=== PATIENT | male | born 1945 | race Caucasian/White ===

== ENCOUNTER 2019-04-27 22:28 | Inpatient (IN) | payer MEDICARE, OTHER ==
[~2019-04-27] VITALS: Ht 190.5 cm; Wt 135.2 kg
[~2019-04-27 22:28] MED LIST changes: -ASPI81TA94 PO; -EMPA10TA PO; -GABA-549 PO; -GABA-551 PO; -LIRA0.6P3 SQ; -MELO-205 PO; -METF-452 PO; -MULT-1335 PO; -PREG150C33 PO; -SITA100T PO; -TRIAMCINOLONE
--- NOTE | 2019-04-27 22:30 | ER Report ---
History and Physical Time Seen By MD: 22:29 HPI/ROS CHIEF COMPLAINT: Fever and chills HISTORY OF PRESENT ILLNESS: 73-year-old male type II diabetic, had a rigor at home. He took his blood glucose at 80. (Fingerstick on arrival here 127). He t hought he might be having hypoglycemic attacks. He presents to the ER. 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 Patient was on clindamycin for several weeks without improvement. Today he was switched over to Levaquin. Is a large ulcer on the anterior old medial aspect of the partial ampule patient of the toe. The 2nd toe is entirely erythematous consistent with cellulitis. There is a bloody serosanguineous drainage from the 2nd toe. On arrival here. Patient's documented have a fever 99.8. Patient had an x-ray performed earlier of the right foot which shows no bony erosion of the right 2nd toe, see radiology reading. REVIEW OF SYSTEMS: Respiratory: No cough, no dyspnea. Cardiovascular: No chest pain, no palpitations. Gastrointestinal: No vomiting, no abdominal pain. Musculoskeletal: No back pain. Allergies: Coded Allergies: Streptokinase (Verified Allergy, Intermediate, FEVER CHILLS, 01/16/11) Sulfa(Sulfonamide Antibiotics) (Verified Allergy, Unknown, 03/23/11) Home Meds Reported Medications Gabapentin (GABAPENTIN) 400 Mg Capsule, 3 TAB PO BID, CAPSULE 3 tabs at 1800, and 2100 04/28/19 Multivitamin With Minerals (MULTIPLE VITAMIN) 1 Each Tablet, 1 EACH PO, TAB 04/28/19 Aspirin (ASPIRIN) 81 Mg Tab.chew, 81 MG PO QDAY, TAB.CHEW 04/28/19 Liraglutide (VICTOZA 2-ANAND) 0.6 Mg/0.1 Ml Pen.injctr, 1.2 MG SQ QDAY 04/28/19 [Trimicinolone Cream] No Conflict Check 04/28/19 Meloxicam (MELOXICAM) 7.5 Mg Tablet, 7.5 MG PO QHS 04/28/19 Pregabalin (LYRICA) 150 Mg Capsule, 150 MG PO QHS, CAPSULE 04/28/19 Empagliflozin (Jardiance) 10 Mg Tablet, 10 MG PO QDAY 04/28/19 Sitagliptin Phosphate (JANUVIA) 100 Mg Tablet, 100 MG PO QDAY 04/28/19 Metformin Hcl (METFORMIN HCL) 1,000 Mg Tablet, 1 TAB PO BID, TAB 04/28/19 Clopidogrel Bisulfate (Plavix) 75 Mg Tab, 75 MG PO QDAY, 0 Refills 03/19/11 Simvastatin (Zocor) 40 Mg Tablet, 40 MG PO QHS, 0 Refills 03/19/11 Metoprolol Tartrate (Lopressor) 50 Mg Tablet, 50 MG PO BID, 0 Refills 03/19/11 Lisinopril (Lisinopril) 10 Mg Tablet, 10 MG PO, 0 Refills 03/19/11 Discontinued Reported Medications Gabapentin (GABAPENTIN) 300 Mg Capsule, 600 MG PO TID, CAPSULE 04/28/19 [Plavix Held] No Conflict Check, 0 Refills 03/19/11 Glimepiride (Amaryl) 2 Mg Tab, 2 MG PO QDAY, 0 Refills 03/19/11 Fenofibric Acid (Trilipix) 135 Mg Capsule.dr, 135 MG PO, 0 Refills 03/19/11 Sitagliptin Phos/Metformin Hcl (Janumet 50-1,000 Mg Tablet) 1 Udtab Tablet, 1 UDTAB PO BID, 0 Refills 03/19/11 Me-Cobalam/Lm-Folate/Pyridoxal (Metanx Tablet) 1 Tab Tablet, 1 TAB PO, 0 Refills 03/19/11 Past Medical/Surgical History Hypoxia. Patient wears 4 L of O2 at night at home. Type II diabetes, insulin required Reviewed Nurses Notes: Yes Old Medical Records Reviewed: Yes Constitutional Vital Sign - Last 24 Hours 04/27/19 04/27/19 22:33 22:57 Temp 99.8 Pulse 109 Resp 19 B/P (MAP) 165/82 Pulse Ox 95 O2 Delivery Room Air O2 Flow Rate 4.0 Physical Exam General Appearance: The patient is alert, has no immediate need for airway protection and no current signs of toxicity. Vital signs stable. Temp 99.8 Eyes: Pupils equal and round no injection. Respiratory: Chest is non tender, lungs are clear to auscultation. Cardiac: regular rate and rhythm Gastrointestinal: Abdomen is soft and non tender, no masses, bowel sounds normal. Musculoskeletal: Neck: Neck is supple and non tender. Extremities have full range of motion and are non tender. Examination of the right foot reveals an erythematous 2nd toe with a large 1 cm ulcer on the anterior medial aspect, there is gross erythema up to the mid calf region, primarily on the posterior aspect of the calf. It is warm to the touch. Skin: No rashes or lesions. DIFFERENTIAL DIAGNOSIS: After history and physical exam differential diagnosis was considered for cellulitis, osteomyelitis, Medical Decision Making Data Points Result Diagram: 04/29/19 0514 04/29/19 0514 Laboratory Hematology Test 04/27/19 22:57 04/27/19 23:44 Erythrocyte Sedimentation Rate 10 mm/HOUR (0-20) Lactate 1.6 mmol/L (0.7-2.1) C-Reactive Protein 1.2 mg/dl (<1.0) Urine Color Yellow Urine Clarity Clear Urine pH 5.0 pH (4.8-9.5) Urine Specific [place] 1.023 Urine Protein Negative mg/dL (NEGATIVE) Urine Glucose (UA) 500 mg/dL (NEGATIVE) Urine Ketones Trace mg/dL (NEGATIVE) Urine Blood Negative (NEGATIVE) Urine Nitrite Negative (NEGATIVE) Urine Bilirubin Negative (NEGATIVE) Urine Urobilinogen Negative mg/dL (0.2-1.9) Urine Leukocyte Esterase Negative (NEGATIVE) Urine RBC <1 /HPF (0-2/HPF) Urine WBC 3 /HPF (0-5/HPF) Urine Squamous Epithelial Cells None /LPF (</=FEW) Urine Bacteria Negative /HPF (NONE-FEW) Urine Mucus None /HPF (NONE-FEW) Chemistry Test 04/27/19 22:57 04/27/19 23:44 Erythrocyte Sedimentation Rate 10 mm/HOUR (0-20) Lactate 1.6 mmol/L (0.7-2.1) C-Reactive Protein 1.2 mg/dl (<1.0) Urine Color Yellow Urine Clarity Clear Urine pH 5.0 pH (4.8-9.5) Urine Specific [place] 1.023 Urine Protein Negative mg/dL (NEGATIVE) Urine Glucose (UA) 500 mg/dL (NEGATIVE) Urine Ketones Trace mg/dL (NEGATIVE) Urine Blood Negative (NEGATIVE) Urine Nitrite Negative (NEGATIVE) Urine Bilirubin Negative (NEGATIVE) Urine Urobilinogen Negative mg/dL (0.2-1.9) Urine Leukocyte Esterase Negative (NEGATIVE) Urine RBC <1 /HPF (0-2/HPF) Urine WBC 3 /HPF (0-5/HPF) Urine Squamous Epithelial Cells None /LPF (</=FEW) Urine Bacteria Negative /HPF (NONE-FEW) Urine Mucus None /HPF (NONE-FEW) Urinalysis Test 04/27/19 23:44 Urine Color Yellow Urine Clarity Clear Urine pH 5.0 pH (4.8-9.5) Urine Specific [place] 1.023 Urine Protein Negative mg/dL (NEGATIVE) Urine Glucose (UA) 500 mg/dL (NEGATIVE) Urine Ketones Trace mg/dL (NEGATIVE) Urine Blood Negative (NEGATIVE) Urine Nitrite Negative (NEGATIVE) Urine Bilirubin Negative (NEGATIVE) Urine Urobilinogen Negative mg/dL (0.2-1.9) Urine Leukocyte Esterase Negative (NEGATIVE) Urine RBC <1 /HPF (0-2/HPF) Urine WBC 3 /HPF (0-5/HPF) Urine Squamous Epithelial Cells None /LPF (</=FEW) Urine Bacteria Negative /HPF (NONE-FEW) Urine Mucus None /HPF (NONE-FEW) Microbiology Microbiology Date/Time Source Procedure Growth Status 04/27/19 23:16 Blood Peripheral Draw Blood Culture - Preliminary NO GROWTH AFTER 1 DAY, REINCUBATED Resulted 04/27/19 22:57 Blood Peripheral Draw Blood Culture - Preliminary NO GROWTH AFTER 1 DAY, REINCUBATED Resulted EKG/Imaging Imaging FOOT 3 VIEWS RIGHT History: Right foot pain. Right second toe swelling. History of amputation. Comparison study: None. Findings: There is no acute fracture involving the right foot. There has been amputation of the second digit at the PIP joint. There has been amputation of the third digit at the DIP joint. There is widening of the joint space at the fourth PIP joint is of uncertain etiology or significance. Similar findings are noted at the fifth PIP joint. There is no finding of bony erosion in a digits. IMPRESSION: 1. Postoperative changes involving the second third digit as described above. 2. No definitive site of bony erosion. No fracture. X-ray: Single view chest x-ray was obtained. I viewed the images myself on the PACS system. My interpretation of the images is: No infiltrate, no effusion, normal mediastinum. There is minimal haziness in the left lower lobe of unclear significance, Comparison to previous chest x-ray dated , no significant change. [The radiologist interpretation had no clinically significant variation from this interpretation]. Results: Ultrasound of the right lower extremity ultrasound for DVT was obtained. The re sults of the study are VENOUS DOPP LOW RIGHT EXTREMIT HISTORY: R calf swelling redness r/o DVT COMPARISON: None. FINDINGS: Grayscale, duplex and color Doppler interrogation of the right lower extremity deep veins from common femoral vein to proximal calf was completed. The greater saphenous vein in the proximal thigh was evaluated using similar technique. Common femoral vein - Negative. Femoral vein - Negative. Deep femoral vein - Negative. Popliteal vein - Negative. Visualized deep calf veins - Negative. Popliteal fossa: Negative. Greater saphenous vein in the proximal thigh: Negative. IMPRESSION: No evidence for DVT. The study was read by the radiologist. I viewed the images myself on the PACS system. ED Course/Re-evaluation Clinical Indication for ER IV: Hydration, IV Access ED Course Patient was admitted to an examination room. H&P was done. The differential diagnoses was considered. Patient with a rigor and then a fever. I suspect he was bacteremic since his lactate returned normal. He's failing outpatient therapy for cellulitis of his 2nd toe which is now spreading to his right lower extremity. His CBC count was elevated at 15,000 with a left shift, 88 segs. Patient was on clindamycin for several weeks. He was reevaluated again today. A foot x-ray shows no evidence of osteomyelitis. He was switched to Levaquin and took a single dose. This evening he began to feel bad and thought he was h aving a hypoglycemic attack. His blood sugar was checked at 80 at home. On arrival here was 127. Patient had blood cultures performed. Chest x-ray and urinalysis were also performed. Patient is hypoxic on arrival, but he wears 4 L at home. He complains of no chest pain or shortness of breath. He said no productive cough. Patient appears to be failing outpatient oral antibiotics. 04/28/2019 12:54:50 am case was discussed with Dr. Marcial Orr hospitalist on- call, who accepts the patient for treatment of cellulitis of the right lower extremity Decision to Disposition Date: Apr 27, 2019 Decision to Disposition Time: 23:46 Depart Departure Latest Vital Signs Vital Signs Date Time Temp Pulse Resp B/P (MAP) Pulse Ox O2 Delivery O2 Flow Rate FiO2 04/27/19 22:57 4.0 04/27/19 22:33 99.8 109 19 165/82 95 Room Air Impression: Primary Impression: Cellulitis of right foot Additional Impression: Type II diabetes mellitus Condition: Improved Disposition: Admitted from ER Referrals: KOMAL FLETCHER MD (PCP) Problem Qualifiers Additional Impression: Type II diabetes mellitus Diabetes mellitus jail insulin use: unspecified intermediate project manager insulin use status Diabetes mellitus complication status: with circulatory complication Diabetes mellitus complication detail: with peripheral angiopathy with gangrene Qualified Codes: E11.52 - Type 2 diabetes mellitus with diabetic peripheral angiopathy with gangrene ENA DAVIDSON DO Apr 27, 2019 22:30
[2019-04-27] MEDS ORDERED: NS(*) 0.9% 1000 ML BAG 1,000 ML IV ONE (22:40)
[2019-04-27 23:21] LABS: PLATELET COUNT, AUTOMATED 145 K/uL (150-450)
[2019-04-27] MEDS ORDERED: VANCOMYCIN(*) 1 GM VIAL 2 GM in NS(*) 0.9% 500 ML BAG 500 ML IVPB ONE (23:50)
--- NOTE | 2019-04-28 00:23 | RADIOLOGY IMAGING REPORT ---
FACILITY: [facility] PATIENT NAME: Sebastien Leonard : 1945 MR: [id number] V: [id number] EXAM DATE: ORDERING PHYSICIAN: ENA DAVIDSON TECHNOLOGIST: Location: [facility] [place] Patient: Sebastien Leonard : 1945 Visit/Account:[id number] Date of Sevice: 04/27/2019 VENOUS DOPP LOW RIGHT EXTREMIT HISTORY: R calf swelling redness r/o DVT COMPARISON: None. FINDINGS: Grayscale, duplex and color Doppler interrogation of the right lower extremity deep veins from common femoral vein to proximal calf was completed. The greater saphenous vein in the proximal thigh was ev aluated using similar technique. Common femoral vein - Negative. Femoral vein - Negative. Deep femoral vein - Negative. Popliteal vein - Negative. Visualized deep calf veins - Negative. Popliteal fossa: Negative. Greater saphenous vein in the proximal thigh: Negative. IMPRESSION: No evidence for DVT. Report Dictated By: Humza Rider MD at 04/28/2019 12:18 AM Report E-Signed By: Humza Rider MD at 04/28/2019 12:18 AM WSN:[id number]
[2019-04-28] MEDS ORDERED: MELO-205 PO (00:43)
[2019-04-28] MEDS ORDERED: LIRA0.6P3 SQ (00:43)
[2019-04-28] MEDS ORDERED: PREG150C33 PO (00:43)
[2019-04-28] MEDS ORDERED: TRIAMCINOLONE (00:43)
[2019-04-28] MEDS ORDERED: MULT-1335 PO (00:43)
[2019-04-28] MEDS ORDERED: GABA-549 PO (00:43)
[2019-04-28] MEDS ORDERED: METF-452 PO (00:43)
[2019-04-28] MEDS ORDERED: EMPA10TA PO (00:43)
[2019-04-28] MEDS ORDERED: ASPI81TA94 PO (00:43)
[2019-04-28] MEDS ORDERED: SITA100T PO (00:43)
--- NOTE | 2019-04-28 00:53 | RADIOLOGY IMAGING REPORT ---
FAC[place] [facility] [place] PATIENT NAME: Sebastien Leonard : 1945 MR: [id number] V: [id number] EXAM DATE: ORDERING PHYSICIAN: ENA DAVIDSON TECHNOLOGIST: [facility] Patient: Sebastien Leonard : 1945 Visit/Account:[id number] Date of Sevice: 04/27/2019 PORTABLE CHEST: Indication: Fever and chills. Technique: A single frontal film was obtained. Comparison: 03/24/2011 Skeletal and soft tissue structures: Sternal sutures appear intact. No acute skeletal deformity is id entified. Heart and mediastinum: The heart appears mildly enlarged. The mediastinal contours are stable. Lung castillo: Hypoexpanded. No acute parenchymal process is clearly identified. There is no vascular c ongestion. Pleural spaces: Unremarkable. Impression: No acute process or significant change. Report Dictated By: Jarred Gonzalez MD at 04/28/2019 12:46 AM Report E-Signed By: Jarred Gonzalez MD at 04/28/2019 12:48 AM WSN:[id number]
[2019-04-28 02:02] VITALS: BP 146/77
[2019-04-28 02:05] VITALS: BP 146/77
[2019-04-28] MEDS ORDERED: GABA-551 PO (02:26)
[2019-04-28] MEDS ORDERED: NS(*) 0.9% 500 ML BAG 500 ML ONE (02:38)
[2019-04-28] MEDS ORDERED: ACETAMINOPHEN 325 MG TAB PO PRN (02:55)
--- NOTE | 2019-04-28 03:22 | History & Physical ---
History of Present Illness Chief Complaint Right leg and foot pain History of Present Illness 73yo male with PMHx significant for type 2 DM, CAD s/p stenting x4, DVT, previous osteomyelitis right 2nd toe s/p partial amputation. He reports onset of redness, pain, drainage in right 2nd toe approximately 10 days ago. He was seen in the local urgent care and placed on clindamycin. His toe did not show much improvement over the following week and he began to develop some redness and pain in his anterior tibial/calf areas. He was changed to oral Levaquin yesterday. Following the first dose of Levaquin he noticed onset of chills/rigors. He also noted his blood glucose was lower than usual. [facility]. He was found to be febrile (100.2F) and have an elevated WBC count. Foot x-ray did not show any erosive bone changes. US venogram was negative for DVT. He was recommended for admission. History Problems: (1) CAD (coronary artery disease) Status: Chronic (2) History of coronary artery stent placement Status: Chronic (3) Osteomyelitis of toe Status: Resolved (4) History of partial amputation of toe Status: Resolved (5) Type II diabetes mellitus Status: Chronic (6) Diabetic neuropathy Status: Chronic (7) DVT (deep venous thrombosis) Status: Resolved Home Meds Reported Medications Gabapentin (GABAPENTIN) 400 Mg Capsule, 3 TAB PO BID, CAPSULE 3 tabs at 1800, and 2100 04/28/19 Multivitamin With Minerals (MULTIPLE VITAMIN) 1 Each Tablet, 1 EACH PO, TAB 04/28/19 Aspirin (ASPIRIN) 81 Mg Tab.chew, 81 MG PO QDAY, TAB.CHEW 04/28/19 Liraglutide (VICTOZA 2-ANAND) 0.6 Mg/0.1 Ml Pen.injctr, 1.2 MG SQ QDAY 04/28/19 [Trimicinolone Cream] No Conflict Check 04/28/19 Meloxicam (MELOXICAM) 7.5 Mg Tablet, 7.5 MG PO QHS 04/28/19 Pregabalin (LYRICA) 150 Mg Capsule, 150 MG PO QHS, CAPSULE 04/28/19 Empagliflozin (Jardiance) 10 Mg Tablet, 10 MG PO QDAY 04/28/19 Sitagliptin Phosphate (JANUVIA) 100 Mg Tablet, 100 MG PO QDAY 04/28/19 Metformin Hcl (METFORMIN HCL) 1,000 Mg Tablet, 1 TAB PO BID, TAB 04/28/19 Clopidogrel Bisulfate (Plavix) 75 Mg Tab, 75 MG PO QDAY, 0 Refills 03/19/11 Simvastatin (Zocor) 40 Mg Tablet, 40 MG PO QHS, 0 Refills 03/19/11 Metoprolol Tartrate (Lopressor) 50 Mg Tablet, 50 MG PO BID, 0 Refills 03/19/11 Lisinopril (Lisinopril) 10 Mg Tablet, 10 MG PO, 0 Refills 03/19/11 Discontinued Reported Medications Gabapentin (GABAPENTIN) 300 Mg Capsule, 600 MG PO TID, CAPSULE 04/28/19 [Plavix Held] No Conflict Check, 0 Refills 03/19/11 Glimepiride (Amaryl) 2 Mg Tab, 2 MG PO QDAY, 0 Refills 03/19/11 Fenofibric Acid (Trilipix) 135 Mg Capsule.dr, 135 MG PO, 0 Refills 03/19/11 Sitagliptin Phos/Metformin Hcl (Janumet 50-1,000 Mg Tablet) 1 Udtab Tablet, 1 UDTAB PO BID, 0 Refills 03/19/11 Me-Cobalam/Lm-Folate/Pyridoxal (Metanx Tablet) 1 Tab Tablet, 1 TAB PO, 0 Refills 03/19/11 Allergies: Coded Allergies: Streptokinase (Verified Allergy, Intermediate, FEVER CHILLS, 01/16/11) Sulfa(Sulfonamide Antibiotics) (Verified Allergy, Unknown, 03/23/11) Other Social/Family Hx He is . Hx Smoking: No Caffeine Intake: Coffee Caffeine/Cups Per Day: 1-2 Hx Alcohol Use: Yes Alcohol Use: Occassional Hx Substance Use Disorder: No Review of Systems Constitutional: Fever, Chills Cardiovascular: No Chest Pain, No Palpitations Respiratory: No Shortness of Breath Gastrointestinal: No Nausea, No Vomiting, No Diarrhea, No Constipation, No Hematemesis, No Hematochezia, No Melena, No Abdominal Pain Genitourinary: No Dysuria Musculoskeletal: Pain Exam Vital Signs Vital Signs Date Time Temp Pulse Resp B/P (MAP) Pulse Ox O2 Delivery O2 Flow Rate FiO2 04/28/19 02:02 100.2 104 16 146/77 (100) 91 Nasal Cannula 4.0 General Appearance: Alert, Awake Neuro: No Gross deficits Eyes: PERRLA Neck: Other (thick/alexis) Cardiovascular: Regular Rate and Rhythm Respiratory: Clear to Auscultation Chest: No Tenderness GI: Abd Soft and Non-Tender (obese) Extremities: Warm, Perfused, Other (Previous partial amputation of distal aspect second toe right foot with erythema/edema/ulcer on distal aspect. Some bloody drainage.) Integumentary: Other (chronic venous stasis changes right lower extremity/some erythema and mild edema over right anterior tibial area extending posteriorly) Psych: Alert & Oriented X3 Medical Decision Making Data Points Result Diagram: 04/27/19225604/27/192256 Item Value Date Time Albumin 4.6 g/dl 04/27/192256 Total Protein 7.5 g/dl 04/27/192256 C-Reactive Protein 1.2 mg/dl H 04/27/192256 Alkaline Phosphatase 95 U/L 04/27/192256 Alanine Aminotransferase (ALT/SGPT) 36 U/L 04/27/192256 Aspartate Amino Transf (AST/SGOT) 35 U/L 04/27/192256 Total Bilirubin 0.9 mg/dl 04/27/192256 Calcium Level 9.6 mg/dl 04/27/192256 Lactate 1.6 mmol/L 04/27/192256 Urine Color Yellow 04/27/19 2344 Urine Clarity Clear 04/27/192343 Urine pH 5.0 pH 04/27/19 2344 Urine Specific [place] 1.023 04/27/19 2344 Urine Protein Negative mg/dL 04/27/194 Urine Glucose (UA) 500 mg/dL 04/27/19 2344 Urine Ketones Trace mg/dL 04/27/19 2344 Urine Blood Negative 04/27/19 2344 Urine Nitrite Negative 04/27/19 2344 Urine Bilirubin Negative 04/27/19 2344 Urine Urobilinogen Negative mg/dL 04/27/19 2344 Urine Leukocyte Esterase Negative 04/27/19 2344 Urine RBC <1 /HPF 04/27/19 2344 Urine WBC 3 /HPF 04/27/19 2344 Urine Squamous Epithelial Cells None /LPF 04/27/19 2344 Urine Bacteria Negative /HPF 04/27/19 2344 Urine Mucus None /HPF 04/27/19 2344 Assessment and Plan Problems: (1) Cellulitis of right foot Status: Acute Assessment & Plan: It appears he has cellulitis of his right second toe and foot with some extension to distal leg as well. He has been on oral clindamycin and subsequent Levaquin as an outpatient. Will place him on IV vancomycin and cefepime. Will have wound care see. May need to consider MRI to evaluate as well. (2) CAD (coronary artery disease) Status: Chronic Assessment & Plan: He appears stable from this standpoint. Will continue his Plavix, aspirin, simvastatin, and metoprolol. (3) Type II diabetes mellitus Status: Chronic Assessment & Plan: Will place on ADA diet, monitor glucoses, resume his metformin, Jardiance, Januvia, Victoza, and use SSI as needed. Venous Thromboembolism Antithrombotics Is Pt On Any Antithrombotics?: Yes Exam Sepsis Risk: No Definite Risk Problem Qualifiers (1) Type II diabetes mellitus: Diabetes mellitus detention insulin use: unspecified terminal makeup operator insulin use status Diabetes mellitus complication status: with circulatory complication Diabetes mellitus complication detail: with peripheral angiopathy with gangrene Qualified Codes: E11.52 - Type 2 diabetes mellitus with diabetic peripheral angiopathy with gangrene ALPESH HERNANDEZ MD Apr 28, 2019 03:22
[2019-04-28] MEDS ORDERED: CEFEPIME HCL 2 GM VIAL ONE (03:34)
[2019-04-28] MEDS: CEFEPIME HCL 2 GM VIAL IVP SCH ×2 (04:01→16:13)
[2019-04-28 06:21] LABS: PLATELET COUNT, AUTOMATED 120 K/uL (150-450)
[2019-04-28 07:25] VITALS: BP 125/71
[2019-04-28] MEDS: PATIENT'S OWN MED PO SCH (09:00)
[2019-04-28] MEDS: GABAPENTIN 300 MG CAP PO SCH ×4 (09:00→20:47)
[2019-04-28] MEDS: METOPROLOL TART 50 MG TAB PO SCH ×2 (09:31→20:45)
[2019-04-28] MEDS: metFORMIN HCL XR 500 MG TABCR PO SCH ×2 (09:31→20:45)
[2019-04-28] MEDS: ENOXAPARIN 40 MG/0.4ML SYR SC SCH (09:32)
[2019-04-28] MEDS: CLOPIDOGREL BISULFATE 75MG TAB PO SCH (09:32)
[2019-04-28] MEDS: ASPIRIN 81 MG ENTERIC COATED PO SCH (09:32)
[2019-04-28] MEDS: LISINOPRIL 10 MG TAB PO SCH (09:32)
[2019-04-28] MEDS: MULTIVITAMINS TAB PO SCH (09:32)
[2019-04-28] MEDS: LIRAGLUTIDE 18 MG/3 ML SUBQ SCH (09:35)
[2019-04-28 10:17] VITALS: Ht 190.5 cm; Wt 135.2 kg
--- NOTE | 2019-04-28 11:15 | NUR ---
Physical Therapy Impression PT mobility eval complete. Pt is Henry for bed mobility, transfers and ambulation with no AD. Ambulation x250' with good tolerance. Pt asc/desc 8 stairs with step to gait and no LOB. Pt is safe to be I) in his room and was encouraged to ambulate in halls as tolerated. No further PT visits planned. PT wound eval complete. Pt reports with neuropathic ulcer of the medial side of the proximal 2nd toe of the R) foot, distal toe was previously amputated several years ago per pt report. Pt reports that he noticed the wound about 2 weeks ago, but has done minimal to dress the wound. Wound is open to air and covered by sock at time of eval. Calloused area with obvious fluctuance present on the medial side of the R) second toe. PT completed conservative, selective debridement of non viable tissue and slough with tweezers and scissors to the depth of the subcutaneous tissue. Entire area of fluctuance removed to reveal underlying wound, which probes to the depth of the bone at the base of the wound. Purulent drainage expressed. Wound cleansed with sterile saline and then treated with calcium alginate and a bordered gauze dressing. Dr. Pryor notified, pt will be scheduled for an MRI later today. PT to f/u 05/01/19 for dressing change and debridement as needed and pending result of MRI. Physical Therapy Goals 1: bed mobility with Henry 2: transfers with Henry 3: ambulation x150' with Henry 4: up/down 8 stairs with SBA Patient's Goals
[2019-04-28] MEDS ORDERED: VANCOMYCIN(*) 1 GM VIAL 2 GM in NS(*) 0.9% 500 ML BAG 500 ML IVPB SCH (12:00)
[2019-04-28 13:16] VITALS: BP 117/67
[2019-04-28] MEDS: NS(*) 0.9% 1000 ML BAG 1,000 ML IV PRN (18:10)
[2019-04-28 19:05] VITALS: BP 126/69
[2019-04-28] MEDS: SIMVASTATIN 40 MG TAB PO SCH (20:46)
[2019-04-28] MEDS: PREGABALIN 150 MG CAPSULE PO SCH (20:46)
[2019-04-28 23:01] VITALS: BP 130/71
[2019-04-29] MEDS: VANCOMYCIN(*) 1 GM VIAL 1 GM, VANCOMYCIN HCL 0.750 GM VIAL 0.75 GM in NS(*) 0.9% 250 ML... IVPB SCH ×3 (00:21→16:24)
[2019-04-29 02:27] VITALS: BP 127/71
[2019-04-29] MEDS: CEFEPIME HCL 2 GM VIAL IVP SCH ×2 (03:46→16:23)
[2019-04-29 05:45] LABS: PLATELET COUNT, AUTOMATED 117 K/uL (150-450)
[2019-04-29 07:43] VITALS: BP 124/70
[2019-04-29] MEDS: METOPROLOL TART 50 MG TAB PO SCH ×2 (08:24→21:19)
[2019-04-29] MEDS: LISINOPRIL 10 MG TAB PO SCH (08:24)
[2019-04-29] MEDS: CLOPIDOGREL BISULFATE 75MG TAB PO SCH (08:24)
[2019-04-29] MEDS: ENOXAPARIN 40 MG/0.4ML SYR SC SCH (08:24)
[2019-04-29] MEDS: LIRAGLUTIDE 18 MG/3 ML SUBQ SCH (08:29)
[2019-04-29] MEDS: PATIENT'S OWN MED PO SCH (09:00)
--- NOTE | 2019-04-29 09:31 | Antimicrobial Stewardship ---
Antimicrobial Time Out Antimicrobial Stewardship MD Service: Hospitalist Indications: Cellulitis Antimicrobial Used cefepime and vanco Start Date: Apr 27, 2019 Culture Results: No (no growth) Eligible for PO Conversion Eligable for PO Conversion: Yes Reviewed with Provider Reviewed w/ Provider on Rounds: No Comments Comments Currently on broad coverage pending results from microbiology. Hx of DM, osteo a nd partial amputation of affected digit. SCOOTER TY Apr 29, 2019 09:31
--- NOTE | 2019-04-29 09:43 | Pharmacy Note ---
Vancomycin Management Note Vanco Dosing Note Pharmacy Services Pharmacokinetic Dosing Consult, Vancomycin Pharmacy has been consulted for dosing and monitoring of vancomycin for 73 YO male for cellulitis of toe. Pertinent Past Medical History: osteo in same toe, s/p partial amputation, DM Antibiotics prior to admission; Clindamycin and Levaquin PO outpatient (failed) Additional Antimicrobials: Cefepime 2g Q24H Start 04/28/19 Vancomycin Start 04/28/19 Patient Information: Height (cm): 190.5cm Actual Body Weight (ABW): 135 kg Pertinent Lab Tests WHITE BLOOD COUNT 9.1 (down from 15.2) NEUTROPHILS 70.7% (down from 86.7%) BLOOD UREA NITROGEN 17 SCR 1.0 VANCOMYCIN RANDOM 12.2 after 2 doses of 2G Q12H Culture Results: BLOOD - no growth URINE SPUTUM WOUND Assessment: CrCl ~85ml/min Renal function is stable Vancomycin Monitoring Assessment Goal Vancomycin Trough Level: 15-20 Plan: 1) Vancomycin 25 mg/kg loading dose (based on ABW): was given 2G load IV x 1 at 0007hrs on 04/28/19 2) Vancomycin maintenance dose (based on ABW): started at 2G Q12H for 2 doses, then adjusted overnight by hospitalist to 1750mg Q8h after random level of 12.2 3) Vancomycin monitoring: Vanco trough planned for 04/30/19 at 0800, before the 0900 dose Pharmacy will continue to monitor daily and adjust regimen as appropriate. Thank you for the consult. SCOOTER TY Apr 29, 2019 09:35
--- NOTE | 2019-04-29 10:37 | Hospitalist Progress Note ---
Subjective Progress Notes Subjective Denies new complaints. Has neuropathic pain in feet but no acute pain. Physical Exam Vital Signs Date Time Temp Pulse Resp B/P (MAP) Pulse Ox O2 Delivery O2 Flow Rate FiO2 04/29/19 07:43 98.0 74 18 124/70 (88) 92 Nasal Cannula 04/29/19 02:27 7.0 Intake and Output 04/29/19 07:01 Intake Total 3004 ml Output Total 2900 ml Balance 104 ml Intake Oral 1460 ml IV Total 1544 ml Output Urine Total 2900 ml # Voids 3 General Appearance: Alert, Awake, No Acute Distress Eyes: PERRLA Extremities: Warm, Pulses (Equal bilaterally, slightly diminished.), Perfused, Edema (1-2+ bilaterally. ) Integumentary: Other (Chronic venous stasis changes R leg. Some redness and increased warmth medial lower leg. R second toe with distal phalanx surgically absent. Tip of toe with open wound and some redness. No obvious drainage.) Psych: Appropriate Mood & Affect Result Diagram: 04/29/1951304/29/19513 Assessment and Plan Problems: (1) Cellulitis of right foot Status: Acute Assessment & Plan: It appears he has cellulitis of his right second toe and foot with some extension to distal leg as well. He has been on oral clindamycin and subsequent Levaquin as an outpatient. Will place him on IV vancomycin and cefepime. Wound care is following and notes the wound goes down to bone. MRI was done yesterday to evaluate as well and reading is pending. (2) CAD (coronary artery disease) Status: Chronic Assessment & Plan: He appears stable from this standpoint. Will continue his Plavix, aspirin, simvastatin, and metoprolol. (3) Type II diabetes mellitus Status: Chronic Assessment & Plan: Will place on ADA diet, monitor glucoses, resume his metformin, Januvia, Victoza, and use SSI as needed. BS have been fine. Will hold the Jardiance that he usually uses at home. He is on a diabetic diet here and admits his diet is not as well controlled at home. 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
[2019-04-29] MEDS: metFORMIN HCL XR 500 MG TABCR PO SCH ×2 (11:10→21:20)
[2019-04-29] MEDS: MULTIVITAMINS TAB PO SCH (11:10)
[2019-04-29] MEDS: ASPIRIN 81 MG ENTERIC COATED PO SCH (11:10)
--- NOTE | 2019-04-29 13:54 | RADIOLOGY IMAGING REPORT ---
[place] [facility] [place] NAME: Sebastien Leonard : 1945 MR: [id number] V: [id number] EXAM DATE: ORDERING PHYSICIAN: NAY MCKEON TECHNOLOGIST: Location: [facility] - [place] Patient: Sebastien Leonard : 1945 Visit/Account:[id number] Date of Sevice: 04/28/2019 MRI right foot Indication: Infected wound. History of partial amputation 2nd digit. Comparison: Plain radiographs right foot from 04/27/2019 Technique: Multiplanar multisequence MR images were obtained through the right foot. Findings: Postop changes from resection of the 2nd digit at the level the mid phalanx again noted. Correlate wi th surgical history. Prominent subcutaneous edema at the dorsum of the midfoot and proximal forefoot can be seen with cell ulitis. Lack of IV contrast makes difficult to evaluate for abscess collection. The visualized flexor and extensor tendons of the forefoot and midfoot appear intact with no signific ant tenosynovitis seen. There is no acute or aggressive osseous abnormality of the visualized bones of the forefoot to sugges t osteomyelitis at this time. However, there is patchy edema-like signal suggested within the proxim al phalanx of the 2nd digit. IMPRESSION: 1. Findings consistent with prominent cellulitis dorsum of the foot as above. 2. Likely reactive edema within the residual proximal phalanx of the 2nd digit with no abnormal rob ow signal to suggest osteomyelitis on these images. Report Dictated By: Everardo Escobar MD at 04/29/2019 1:45 PM Report E-Signed By: Everardo Escobar MD at 04/29/2019 1:49 PM WSN:[email or web address]
[2019-04-29] MEDS: GABAPENTIN 300 MG CAP PO SCH ×2 (17:55→21:23)
--- NOTE | 2019-04-29 18:38 | Miscellaneous Provider Note ---
Miscellaneous Provider Note Note Dr. Chandler to amputate remaining part of second toe this week. Will stop Plavix for surgery. Okay to stay on baby ASA. If patient doing well, could DC and schedule surgery as an OP. Will monitor. BERTHA HERNANDEZ MD Apr 29, 2019 18:38
--- NOTE | 2019-04-29 18:51 | General Surgery Consultation ---
History of Present Illness Requesting Physician Dr. Kelly Orr, Hospitalist Service Reason for Consult Right second toe wound with osteomyelitis Chief Complaint Right foot infection History of Present Illness 73yo male presents with 2 weeks of a wound on his right second toe. He's had a right second toe amputation through the middle phalanx about 4-5 years ago (his estimate). He has a long history of type 2 diabetes. He has a h/o CAD and had a stent placed 5 years ago. He's on plavix and a baby aspirin currently. Several days ago he noticed redness on his right second toe and this has ascended up onto his foot and lower leg. He was admitted to the Hospitalist service yesterday and started on IV abx (vancomycin and cefepime) and an MRI was obtained today which revealed reactive marrow edema but no obvious osteomyelitis but wound care noted that they could feel bone in the wound. I have been consulted for further evaluation and management. History Problems: (1) Diabetic neuropathy Status: Chronic (2) Type II diabetes mellitus Status: Chronic (3) CAD (coronary artery disease) Status: Chronic (4) DVT (deep venous thrombosis) Status: Resolved (5) History of coronary artery stent placement Status: Chronic (6) History of partial amputation of toe Status: Resolved Home Meds Reported Medications Gabapentin (GABAPENTIN) 400 Mg Capsule, 3 TAB PO BID, CAPSULE 3 tabs at 1800, and 2100 04/28/19 Multivitamin With Minerals (MULTIPLE VITAMIN) 1 Each Tablet, 1 EACH PO, TAB 04/28/19 Aspirin (ASPIRIN) 81 Mg Tab.chew, 81 MG PO QDAY, TAB.CHEW 04/28/19 Liraglutide (VICTOZA 2-ANAND) 0.6 Mg/0.1 Ml Pen.injctr, 1.2 MG SQ QDAY 04/28/19 [Trimicinolone Cream] No Conflict Check 04/28/19 Meloxicam (MELOXICAM) 7.5 Mg Tablet, 7.5 MG PO QHS 04/28/19 Pregabalin (LYRICA) 150 Mg Capsule, 150 MG PO QHS, CAPSULE 04/28/19 Empagliflozin (Jardiance) 10 Mg Tablet, 10 MG PO QDAY 04/28/19 Sitagliptin Phosphate (JANUVIA) 100 Mg Tablet, 100 MG PO QDAY 04/28/19 Metformin Hcl (METFORMIN HCL) 1,000 Mg Tablet, 1 TAB PO BID, TAB 04/28/19 Clopidogrel Bisulfate (Plavix) 75 Mg Tab, 75 MG PO QDAY, 0 Refills 03/19/11 Simvastatin (Zocor) 40 Mg Tablet, 40 MG PO QHS, 0 Refills 03/19/11 Metoprolol Tartrate (Lopressor) 50 Mg Tablet, 50 MG PO BID, 0 Refills 03/19/11 Lisinopril (Lisinopril) 10 Mg Tablet, 10 MG PO, 0 Refills 03/19/11 Discontinued Reported Medications Gabapentin (GABAPENTIN) 300 Mg Capsule, 600 MG PO TID, CAPSULE 04/28/19 [Plavix Held] No Conflict Check, 0 Refills 03/19/11 Glimepiride (Amaryl) 2 Mg Tab, 2 MG PO QDAY, 0 Refills 03/19/11 Fenofibric Acid (Trilipix) 135 Mg Capsule.dr, 135 MG PO, 0 Refills 03/19/11 Sitagliptin Phos/Metformin Hcl (Janumet 50-1,000 Mg Tablet) 1 Udtab Tablet, 1 UDTAB PO BID, 0 Refills 03/19/11 Me-Cobalam/Lm-Folate/Pyridoxal (Metanx Tablet) 1 Tab Tablet, 1 TAB PO, 0 Refills 03/19/11 Allergies: Coded Allergies: Streptokinase (Verified Allergy, Intermediate, FEVER CHILLS, 01/16/11) Sulfa(Sulfonamide Antibiotics) (Verified Allergy, Unknown, 03/23/11) Review of Systems All Systems Reviewed/Normal: Yes, Except as Noted Exam Vital Signs Vital Signs Date Time Temp Pulse Resp B/P (MAP) Pulse Ox O2 Delivery O2 Flow Rate FiO2 04/29/19 08:24 92 Nasal Cannula 4.0 04/29/19 07:43 98.0 74 18 124/70 (88) General Appearance: Alert, Awake, No Acute Distress, Afebrile Neuro: Other (Bilateral LE anesthesia from foot to ankle) Eyes: PERRLA Extremities: Warm, Perfused, Other (Right second toe is partially amputated and well healed but on the medial aspect is a small wound between the second toe and great toe. I probed the wound and it tracks down to the middle phalanx. The toe is not very erythematous and there's a small amount of serous drainage on the dressing. He has venous stasis dermatitis on his right pretibial skin which makes it difficult to see erythema in this area. There is very little to no venous stasis changes in his left lower leg.) Psych: Alert & Oriented X3, Appropriate Mood & Affect Medical Decision Making Data Points Result Diagram: 04/29/19 0514 04/29/19 0514 Assessment and Plan Problems: (1) Osteomyelitis of toe Status: Resolved Assessment & Plan: 04/29/19: His right second toe needs further amputation. He's currently on plavix and aspirin. He's 5 years out from stenting. I've recommended stopping plavix but continuing his baby aspirin. I will plan on amputation in the next several days. Continue wound care and blood sugar control measures. I have explained my findings, opinion, and my recommendations with him in great detail. I've explained toe amputation with him as well along with the alternatives, risks, and expected recovery. I've emphasized the risks of poor wound healing, continuing or recurrent infection at the amputation site, need for further amputation at a higher site such as a ray amputation. He ind icates his understanding of this discussion and his questions have been answered. He would like to proceed with this plan including surgery. (2) Type II diabetes mellitus Status: Chronic (3) Diabetic neuropathy Status: Chronic (4) CAD (coronary artery disease) Status: Chronic (5) DVT (deep venous thrombosis) Status: Resolved (6) History of coronary artery stent placement Status: Chronic (7) History of partial amputation of toe Status: Resolved Condition Stable. Time Spent: < 30 min Venous Thromboembolism Antithrombotics Is Pt On Any Antithrombotics?: Yes Problem Qualifiers (1) Type II diabetes mellitus: Diabetes mellitus custodial insulin use: unspecified custodial insulin use status Diabetes mellitus complication status: with circulatory complication Diabetes mellitus complication detail: with peripheral angiopathy with gangrene Qualified Codes: E11.52 - Type 2 diabetes mellitus with diabetic peripheral angiopathy with gangrene (2) Diabetic neuropathy: Diabetes mellitus type: type 2 Diabetes mellitus complication detail: diabetic polyneuropathy Qualified Codes: E11.42 - Type 2 diabetes mellitus with diabetic polyneuropathy (3) CAD (coronary artery disease): Coronary Disease-Associated Artery/Lesion type: unspecified vessel or lesion type [place] vs. transplanted heart: [place] heart Associated angina: without angina Qualified Codes: I25.10 - Atherosclerotic heart disease of [place] coronary artery without angina pectoris (4) DVT (deep venous thrombosis): DVT location: lower extremity Affected thrombotic vein of extremity: unspecified vein of extremity Chronicity: chronic Laterality: right Qualified Codes: I82.501 - Chronic embolism and thrombosis of unspecified deep veins of right lower extremity ANISHA BELLAMY MD Apr 29, 2019 18:51
[2019-04-29 19:02] VITALS: BP 121/64
[2019-04-29] MEDS: SIMVASTATIN 40 MG TAB PO SCH (21:19)
[2019-04-29] MEDS: PREGABALIN 150 MG CAPSULE PO SCH (21:20)
[2019-04-29 23:30] VITALS: BP 131/75
[2019-04-30] MEDS: VANCOMYCIN(*) 1 GM VIAL 1 GM, VANCOMYCIN HCL 0.750 GM VIAL 0.75 GM in NS(*) 0.9% 250 ML... IVPB SCH (00:49)
[2019-04-30 03:38] VITALS: BP 138/76
[2019-04-30] MEDS: CEFEPIME HCL 2 GM VIAL IVP SCH ×2 (03:43→15:36)
[2019-04-30 06:59] VITALS: BP 115/60
[2019-04-30 08:10] LABS: PLATELET COUNT, AUTOMATED 137 K/uL (150-450)
--- NOTE | 2019-04-30 08:38 | General Surgery Progress Note ---
Subjective Progress Notes Subjective No complaints this morning. Physical Exam Vital Signs Date Time Temp Pulse Resp B/P (MAP) Pulse Ox O2 Delivery O2 Flow Rate FiO2 04/30/19 06:59 98.9 76 18 115/60 (78) 91 Nasal Cannula 2.5 Intake and Output 04/30/19 07:01 Intake Total 905.5 ml Output Total 975 ml Balance -69.5 ml Intake Oral 460 ml IV Total 445.5 ml Output Urine Total 975 ml # Voids 7 General Appearance: Alert, Awake, No Acute Distress, Afebrile Extremities: Warm, Perfused, Other (No erythema. Dressing not removed this morning as I just changed it last evening.) Result Diagram: 04/30/19 0800 04/29/19 0514 Assessment and Plan Problems: (1) Osteomyelitis of toe Status: Resolved Assessment & Plan: 04/29/19: His right second toe needs further amputation. He's currently on plavix and aspirin. He's 5 years out from stenting. I've recommended stopping plavix but continuing his baby aspirin. I will plan on am putation in the next several days. Continue wound care and blood sugar control measures. I have explained my findings, opinion, and my recommendations with him in great detail. I've explained toe amputation with him as well along with the alternatives, risks, and expected recovery. I've emphasized the risks of poor wound healing, continuing or recurrent infection at the amputation site, need for further amputation at a higher site such as a ray amputation. He indicates his understanding of this discussion and his questions have been answered. He would like to proceed with this plan including surgery. 04/30/19: Hold plavix. To OR in 2 days for right 2nd toe amputation. Continue wound care and blood sugar control. May continue ASA 81. Pt agreeable with plan. (2) Type II diabetes mellitus Status: Chronic (3) Diabetic neuropathy Status: Chronic (4) CAD (coronary artery disease) Status: Chronic (5) DVT (deep venous thrombosis) Status: Resolved (6) History of coronary artery stent placement Status: Chronic (7) History of partial amputation of toe Status: Resolved Condition Stable. 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 transplanted heart: [place] heart Associated angina: without angina Qualified Codes: I25.10 - Atherosclerotic heart disease of [place] coronary artery without angina pectoris (4) DVT (deep venous thrombosis): DVT location: lower extremity Affected thrombotic vein of extremity: unspecified vein of extremity Chronicity: chronic Laterality: right Qualified Codes: I82.501 - Chronic embolism and thrombosis of unspecified deep veins of right lower extremity ANISHA BELLAMY MD Apr 30, 2019 08:38
--- NOTE | 2019-04-30 08:46 | NUR ---
Occupational Therapy Impression OT evaluation completed. No OT skilled needs at this time. Pt. to have surgery on Tuesday am with Dr. Chandler and d/c to home following. Occupational Therapy Goals Patient's Goal
[2019-04-30] MEDS: PATIENT'S OWN MED PO SCH (09:00)
[2019-04-30] MEDS: metFORMIN HCL XR 500 MG TABCR PO SCH ×2 (09:41→20:53)
[2019-04-30] MEDS: ASPIRIN 81 MG ENTERIC COATED PO SCH (09:41)
[2019-04-30] MEDS: MULTIVITAMINS TAB PO SCH (09:41)
[2019-04-30] MEDS: METOPROLOL TART 50 MG TAB PO SCH ×2 (09:41→20:53)
[2019-04-30] MEDS: LISINOPRIL 10 MG TAB PO SCH (09:41)
--- NOTE | 2019-04-30 09:43 | Pharmacy Note ---
Vancomycin Management Note Vanco Dosing Note Vancomycin trough = 20.64 on 04/30 at 0800. Dose decreased from 1.75 gm Q 8 hours to 1.5 gm Q 8 hours with the next trough to be done on 05/01 at 0800. BERTHA CHAMPION Apr 30, 2019 09:43
[2019-04-30] MEDS: VANCOMYCIN(*) 1 GM VIAL 1 GM, VANCOMYCIN (*) 0.5 GM VIAL 0.5 GM in NS(*) 0.9% 250 ML BA... IVPB SCH ×2 (09:44→17:06)
[2019-04-30] MEDS: ENOXAPARIN 40 MG/0.4ML SYR SC SCH (09:44)
--- NOTE | 2019-04-30 10:06 | Hospitalist Progress Note ---
Subjective Progress Notes Subjective He denies any new complaints. No fever. Physical Exam Vital Signs Date Time Temp Pulse Resp B/P (MAP) Pulse Ox O2 Delivery O2 Flow Rate FiO2 04/30/19 06:59 98.9 76 18 115/60 (78) 91 Nasal Cannula 2.5 Intake and Output 04/30/19 07:01 Intake Total 905.5 ml Output Total 975 ml Balance -69.5 ml Intake Oral 460 ml IV Total 445.5 ml Output Urine Total 975 ml # Voids 7 General Appearance: Alert, Awake Extremities: Warm, Perfused, Edema (trace-1+ RLE) Integumentary: Other (Right foot/toe erythema much improved. Chronic venous stasis findings unchanged.) Result Diagram: 04/30/19 0800 04/30/19 08 Assessment and Plan Problems: (1) Cellulitis of right foot Status: Acute Assessment & Plan: Improved. It appears he has (at a minimum) cellulitis of his right second toe and foot. He had been on oral clindamycin and subsequent Levaquin as an outpatient. He is currently on IV vancomycin and cefepime. Wound care is following and notes the wound does track down to bone. MRI was done and shows some edema, but no definitive osteomyelitis changes. Dr. Chandler has evaluated his toe/foot and feels it is doubtful the toe would ever heal and plans on amputation of the toe. (2) CAD (coronary artery disease) Status: Chronic Assessment & Plan: He appears stable from this standpoint. Will continue his Plavix (hold for surgery), aspirin, simvastatin, and metoprolol. (3) Type II diabetes mellitus Status: Chronic Assessment & Plan: Will continue on ADA diet, monitor glucoses, resume his metformin, Januvia, Victoza, and use SSI as needed. BS have been fine. Will hold the Jardiance that he usually uses at home. He is on a diabetic diet here and admits his diet is not as well controlled at home. Exam Sepsis Risk: No Definite Risk Problem Qualifiers (1) CAD (coronary artery disease): Coronary Disease-Associated Artery/Lesion type: unspecified vessel or lesion type [place] vs. 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
[2019-04-30] MEDS: LIRAGLUTIDE 18 MG/3 ML SUBQ SCH (10:16)
[2019-04-30 11:11] VITALS: BP 122/91
[2019-04-30 15:43] VITALS: BP 128/72
[2019-04-30] MEDS: GABAPENTIN 300 MG CAP PO SCH ×2 (18:36→21:34)
[2019-04-30 20:44] VITALS: BP 122/59
[2019-04-30] MEDS: SIMVASTATIN 40 MG TAB PO SCH (20:53)
[2019-04-30] MEDS: PREGABALIN 150 MG CAPSULE PO SCH (20:53)
[2019-04-30 23:26] VITALS: BP 130/66
[2019-05-01] MEDS: VANCOMYCIN(*) 1 GM VIAL 1 GM, VANCOMYCIN (*) 0.5 GM VIAL 0.5 GM in NS(*) 0.9% 250 ML BA... IVPB SCH ×3 (01:02→17:04)
[2019-05-01 02:47] VITALS: BP 142/80
[2019-05-01] MEDS: CEFEPIME HCL 2 GM VIAL IVP SCH ×2 (03:22→16:33)
[2019-05-01 06:46] VITALS: BP 124/81
[2019-05-01 08:34] LABS: PLATELET COUNT, AUTOMATED 127 K/uL (150-450)
[2019-05-01] MEDS: metFORMIN HCL XR 500 MG TABCR PO SCH ×2 (09:13→20:54)
[2019-05-01] MEDS: ASPIRIN 81 MG ENTERIC COATED PO SCH (09:13)
[2019-05-01] MEDS: MULTIVITAMINS TAB PO SCH (09:14)
[2019-05-01] MEDS: PATIENT'S OWN MED PO SCH (09:14)
[2019-05-01] MEDS: METOPROLOL TART 50 MG TAB PO SCH ×2 (09:14→20:54)
[2019-05-01] MEDS: LISINOPRIL 10 MG TAB PO SCH (09:14)
[2019-05-01] MEDS: ENOXAPARIN 40 MG/0.4ML SYR SC SCH (09:15)
[2019-05-01] MEDS: LIRAGLUTIDE 18 MG/3 ML SUBQ SCH (09:18)
[2019-05-01 14:45] VITALS: BP 126/76
--- NOTE | 2019-05-01 15:24 | Medical Nutrition Therapy ---
Nutrition Anthropometrics Height (Inches): 75.00 Height (Calculated Centimeters: 190.460273 Weight (Pounds): 298 Weight (Calculated Kilograms): 135.171 BMI: 37.2 Chapo Nutrition Score: Adequate [place] Nutrition Risk Score: 19 Dietary Referral Nutrition Risk Factors: Nutrition Risk Comment: Physical Findings Physical Appearance: Obese BMI 30-39 Skin Appearance Skin Appearance: Edema Edema Location Modifier: Right Edema Location: Leg Type of Edema: Degree of Edema: 2+ Gastrointestinal Symptoms GI Symtoms: Hyperactive Tube Present: Bowel Sounds: Recent Bowel Pattern: Stool Characteristics: Nutrition/Food History Good Nutritional Diagnosis Nutritional Risk Acuity 4: Modified Diet Past Medical History: CAD, coronary artery stent placement. osteomyelitis of toe with amputation, T2DM with neuropathy, DVT Nutritional Acuity: 3-Mild Energy Requirement: 2848 (MSJ) Protein Requirement: 107 (1.2g/kg (Used IBW)) Fluid Requirement: 2848 (1mL/kcal) Diet Type: Diabetic Nutrition Intervention: Cont diet as ordered, Encourage intake, Check glucose Nutrition Monitoring & Eval Nutrition Goals: Eat 75-100% Meal Nutrition Monitoring: BG, Intake RD Patient Assessment Time: [address] Assessment Type: RD Screen Patient Nutrition Acuity: 3-Mild Follow Up Date: May 06, 2019 Nutritional Comment: Pt admitted with right leg and foot pain. Dx with cellulitis. Pt has extensive medical hx. Currently on ADA diet with 100% intakes. Random glucose has ranged from 122-129. Pt has 1+ pitting edema of the right leg. Medications of nutritional interest include: a multivitamin, enoxaparin, and insulin. WBC of 13.2 and RBC of 5.91 are elevated, as is CRP of 1.2. Monitor for adequate intake and blood glucose levels. -AKG 05/01/19-Pt eating well mostly 100% of all meals. BGs slightly elevated. Will continue to montior intake and BG and provide diabetic education as needed.DIAZ LAND May 01, 2019 15:24
--- NOTE | 2019-05-01 15:40 | Hospitalist Progress Note ---
Subjective Progress Notes Subjective 73M admitted with cellulitis/osteomyelitis. GAEL overnight, planning amputation of 2nd toe stump tomorrow. Will hold all PO medications other than BB in am. Patient Complains of: Cardiovascular: No: Chest Pain Gastrointestinal: No Nausea, No Vomiting Physical Exam Vital Signs Date Time Temp Pulse Resp B/P (MAP) Pulse Ox O2 Delivery O2 Flow Rate FiO2 05/01/19 14:45 98.1 93 16 126/76 (93) 91 Nasal Cannula 3.0 Intake and Output 05/01/19 07:01 Intake Total 740 ml Output Total 600 ml Balance 140 ml Intake Oral 490 ml IV Total 250 ml Output Urine Total 600 ml # Voids 5 # Bowel Movements 1 General Appearance: Alert, Awake, No Acute Distress, Afebrile Neuro: No Gross deficits Cardiovascular: Normal Rhythm & Peripheral Pulses Respiratory: No Respiratory Distress Musculoskeletal: No Weakness/Pain Extremities: Soft and Non Tender, Warm, Pulses, Perfused Integumentary: Skin Intact without Lesion / Mass Result Diagram: 05/01/1982005/01/19820 Assessment and Plan Problems: (1) Cellulitis of right foot Status: Acute Assessment & Plan: Improved. It appears he has (at a minimum) cellulitis of his right second toe and foot. He had been on oral clindamycin and subsequent Levaquin as an outpatient. He is currently on IV vancomycin and cefepime. Wound care is following and notes the wound does track down to bone. MRI was done and shows some edema, but no definitive osteomyelitis changes. Dr. Chandler has evaluated his toe/foot and feels it is doubtful the toe would ever heal and plans on amputation of the toe. (2) CAD (coronary artery disease) Status: Chronic Assessment & Plan: He appears stable from this standpoint. Will continue his Plavix (hold for surgery), aspirin, simvastatin, and metoprolol. (3) Type II diabetes mellitus Status: Chronic Assessment & Plan: Will continue on ADA diet, monitor glucoses, resume his metformin, Januvia, Victoza, and use SSI as needed. BS have been fine. Will hold the Jardiance that he usually uses at home. He is on a diabetic diet here and admits his diet is not as well controlled at home. Exam Sepsis Risk: No Definite Risk Problem Qualifiers (1) CAD (coronary artery disease): Coronary Disease-Associated Artery/Lesion type: unspecified vessel or lesion type [place] vs. 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
[2019-05-01] MEDS: GABAPENTIN 300 MG CAP PO SCH ×2 (18:09→21:38)
[2019-05-01 19:08] VITALS: BP 144/82
[2019-05-01] MEDS: PREGABALIN 150 MG CAPSULE PO SCH (20:53)
[2019-05-01] MEDS: SIMVASTATIN 40 MG TAB PO SCH (20:54)
[2019-05-02] VITALS (12 sets, daily range): BP systolic 107–144; BP diastolic 67–91
[2019-05-02] MEDS: NS(*) 0.9% 1000 ML BAG 1,000 ML IV PRN (00:52)
[2019-05-02] MEDS: VANCOMYCIN(*) 1 GM VIAL 1 GM, VANCOMYCIN (*) 0.5 GM VIAL 0.5 GM in NS(*) 0.9% 250 ML BA... IVPB SCH ×3 (00:53→17:00)
[2019-05-02] MEDS: CEFEPIME HCL 2 GM VIAL IVP SCH ×2 (03:44→16:03)
[2019-05-02] MEDS ORDERED: NORMOSOL R SOLN(*) 1000 ML BAG 1,000 ML IV ONE (07:05)
[2019-05-02] MEDS ORDERED: FAMOTIDINE 20 MG TAB PO ONE (07:05)
--- NOTE | 2019-05-02 07:14 | General Surgery Progress Note ---
Subjective Progress Notes Subjective No complaints this morning. Physical Exam Vital Signs Date Time Temp Pulse Resp B/P (MAP) Pulse Ox O2 Delivery O2 Flow Rate FiO2 05/02/19 02:46 98.7 18 107/67 (80) 92 Nasal Cannula 3.0 05/01/19 19:08 91 Intake and Output 05/02/19 07:01 Intake Total 1235 ml Balance 1235 ml Intake Oral 700 ml IV Total 535 ml # Voids 3 # Bowel Movements 1 General Appearance: Alert, Awake, No Acute Distress, Afebrile Extremities: Other (Dressing not removed but no erythema on foot.) Result Diagram: 05/01/1982005/01/19820 Assessment and Plan Problems: (1) Osteomyelitis of toe Status: Resolved Assessment & Plan: 04/29/19: His right second toe needs further amputation. He's currently on plavix and aspirin. He's 5 years out from stenting. I've recommended stopping plavix but continuing his baby aspirin. I will plan on amputation in the next several days. Continue wound care and blood sugar control measures. I have explained my findings, opinion, and my recommendations with him in great detail. I've explained toe amputation with him as well along with the alternatives, risks, and expected recovery. I've emphasized the risks of poor wound healing, continuing or recurrent infection at the amputation site, need for further amputation at a higher site such as a ray amputation. He indicates his understanding of this discussion and his questions have been answered. He would like to proceed with this plan including surgery. 04/30/19: Hold plavix. To OR in 2 days for right 2nd toe amputation. Continue wound care and blood sugar control. May continue ASA 81. Pt agreeable with plan. 05/02/19: To OR today for right 2nd toe amputation. Pt agreeable with proceeding with surgery. (2) Type II diabetes mellitus Status: Chronic (3) Diabetic neuropathy Status: Chronic (4) CAD (coronary artery disease) Status: Chronic (5) DVT (deep venous thrombosis) Status: Resolved (6) History of coronary artery stent placement Status: Chronic (7) History of partial amputation of toe Status: Resolved Exam Sepsis Risk: No Definite Risk Problem Qualifiers (1) Type II diabetes mellitus: Diabetes mellitus fci insulin use: unspecified fci insulin use status Diabetes mellitus complication status: with circulatory complication Diabetes mellitus complication detail: with peripheral angiopathy with gangrene Qualified Codes: E11.52 - Type 2 diabetes mellitus with diabetic peripheral angiopathy with gangrene (2) Diabetic neuropathy: Diabetes mellitus type: type 2 Diabetes mellitus complication detail: diabetic polyneuropathy Qualified Codes: E11.42 - Type 2 diabetes mellitus with diabetic polyneuropathy (3) CAD (coronary artery disease): Coronary Disease-Associated Artery/Lesion type: unspecified vessel or lesion type [place] vs. transplanted heart: [place] heart Associated angina: without angina Qualified Codes: I25.10 - Atherosclerotic heart disease of [place] coronary artery without angina pectoris (4) DVT (deep venous thrombosis): DVT location: lower extremity Affected thrombotic vein of extremity: unspecified vein of extremity Chronicity: chronic Laterality: right Qualified Codes: I82.501 - Chronic embolism and thrombosis of unspecified deep veins of right lower extremity ANISHA BELLAMY MD May 02, 2019 07:14
[2019-05-02] MEDS: METOPROLOL TART 50 MG TAB PO SCH ×2 (08:57→20:18)
[2019-05-02] MEDS: PATIENT'S OWN MED PO SCH (09:00)
[2019-05-02] MEDS: MULTIVITAMINS TAB PO SCH (09:00)
[2019-05-02] MEDS ORDERED: MIDAZOLAM 2 MG/2 ML VIAL IVP PRN (11:40)
--- NOTE | 2019-05-02 11:46 | Hospitalist Progress Note ---
Subjective Progress Notes Subjective He denies pain or fever. No concerns from staff. His is wondering if he still needs surgery because his toe looks so much better. Physical Exam Vital Signs Date Time Temp Pulse Resp B/P (MAP) Pulse Ox O2 Delivery O2 Flow Rate FiO2 05/02/19 10:54 98.7 84 16 130/78 (95) 90 High-Flow Nasal Cannula 2.0 Intake and Output 05/02/19 07:01 Intake Total 1235 ml Balance 1235 ml Intake Oral 700 ml IV Total 535 ml # Voids 3 # Bowel Movements 1 General Appearance: Alert, Awake, No Acute Distress Integumentary: Other (Some swelling in the R>L calf. No erythema, but pigment ation from chronic edema present. R 2nd toe with minimal erythema and none in the R foot.) Result Diagram: 05/01/1982005/01/19820 Assessment and Plan Problems: (1) Cellulitis of right foot Status: Acute Assessment & Plan: Improving. Afebrile. BP/P stable. It appears he has (at a minimum) cellulitis of his right second toe and foot. He had been on oral clindamycin and subsequent Levaquin as an outpatient. He is currently on IV vancomycin and cefepime. Wound care is following and notes the wound does track down to bone. MRI was done and shows some edema, but no definitive osteomyelitis changes. Dr. Chandler has evaluated his toe/foot and feels it is doubtful the toe would ever heal and plans on amputation of the toe today. (2) CAD (coronary artery disease) Status: Chronic Assessment & Plan: He appears stable from this standpoint. His chronic Plavix (last given 04/29) and aspirin (last given 05/01) are on hold. Continuing chronic simvastatin and metoprolol. (3) Type II diabetes mellitus Status: Chronic Assessment & Plan: Glucose 100-149. Metformin last given 05/01 and will hold for 48 hours after surgery. Januvia and Victoza are currently on hold and were last given on 05/01. Holding chronic Jardiance. He is on a diabetic diet here and admits his diet is not as well controlled at home. Will continue on ADA diet, monitor glucoses. Exam Sepsis Risk: No Definite Risk Problem Qualifiers (1) CAD (coronary artery disease): Coronary Disease-Associated Artery/Lesion type: unspecified vessel or lesion type [place] vs. 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
[2019-05-02] MEDS ORDERED: ONDANSETRON 4 MG/2 ML VIAL ONE (12:25)
[2019-05-02] MEDS ORDERED: fentaNYL CITR 100 MCG/2 ML AMP ONE (12:25)
[2019-05-02] MEDS ORDERED: DEXAMETHASONE SOD 4 MG/ML VIAL ONE (12:25)
[2019-05-02] MEDS ORDERED: LIDOCAINE MPF 1% 5 ML VIAL ONE (12:25)
[2019-05-02] MEDS ORDERED: PROPOFOL EMUL(*) 10MG/ML 20 ML 20 ML ONE (12:25)
[2019-05-02] MEDS ORDERED: KETAMINE HCL-NS 50 MG/5 ML SYR ONE (12:26)
[2019-05-02] MEDS ORDERED: ROPIVACAINE 0.5% 20 ML VIAL ONE (12:40)
[2019-05-02] MEDS ORDERED: LIDOCAINE 1%MDV(*)200 MG/20 ML 0 ML ONE (12:40)
[2019-05-02] MEDS ORDERED: BACITRACIN OINT 15 GM TUBE TP ONE (12:40)
[2019-05-02] MEDS ORDERED: NS(*) 0.9% 1000 ML BAG 1,000 ML IV PRN (13:31)
--- NOTE | 2019-05-02 13:38 | Post Operative Progress Note ---
Post Operative Progress Note Date: May 02, 2019 Time: 13:31 Surgeon: Geraldine Dictation number: [id number] Anesthesia: LMA by Dr. Conde Pre-Op Diagnosis: Right second toe wound with osteomyelitis Post-Op Diagnosis: LIZ Findings: C/W dx Procedure(s): Right second toe amputation Specimen Removed:(May be N/A): Right second toe Complications: None Fluids: See anesthesia record Estimated Blood Loss: Minimal Date OP Note Dictated: May 02, 2019 Time OP Note Dictated: 13:32 ANISHA BELLAMY MD May 02, 2019 13:38
--- NOTE | 2019-05-02 14:00 | OPERATIVE REPORT 1 ---
EVENT DATE: May 02, 2019 SURGEON: Roel Chandler MD ANESTHESIOLOGIST: David Lugo MD ANESTHESIA: LMA PREOPERATIVE DIAGNOSIS Right second toe diabetic wound with osteomyelitis. POSTOPERATIVE DIAGNOSIS Right second toe diabetic wound with osteomyelitis. PROCEDURE PERFORMED Right second toe amputation through the proximal phalanx. COMPLICATIONS None CONDITION Stable. INDICATIONS This is a 73-year-old gentleman who is a long-standing diabetic who was admitted to the hospitalist service with cellulitis in his right foot. He responded well to antibiotics and the cellulitis has resolved, but he has a wound on his toe and it was noted by the Wound Care team to probe down to the bone. I was then consulted and noticed that he had had a partial amputation of this toe already many years ago according to him and when I probed the wound which was on the medial aspect of the second toe, between the big toe and the second toe, it does in fact probe down all the way to the bone. I then consented him for a toe amputation and proximal portion of the toe. DESCRIPTION OF PROCEDURE The patient was brought to the operating room and placed supine on the operating table. LMA anesthesia was administered and his right foot was prepped and draped in sterile fashion. A timeout was completed and I marked the skin in a fish-mouth configuration to exclude the ulcer, but to leave enough skin to easily close the wound. I then anesthetized the toe with a digital ring block consisting of 0.5% ropivacaine plain. I then made an incision in the skin at where I marked the skin in a fish-mouth configuration and dissected sharply through all of the soft tissues down to the bone. I went through the proximal interphalangeal joint and then amputated the distal part of this toe and then used a periosteal elevator and raised the soft tissues off the proximal phalanx until I go to the mid-shaft of the proximal phalanx and then cut the bone here with a bone cutter. I then used a rongeur to debride the sharp ends of the divided bone and once there was no sharp ends and the bone was trimmed back far enough to create significant soft tissue coverage over the bone, I then irrigated and dried the wound and then reapproximated the flexor and extensor tendons over the bone with interrupted 3-0 Vicryl sutures. I then closed the skin with running 2-0 Nylon sutures. I cleaned and dried the skin and applied Bacitracin antibiotic ointment over the incision, followed by a sterile surgical dressing. The patient was then awakened, LMA removed and transported to the recovery room in stable condition having tolerated the procedure without any apparent problems. CHELSEY
[2019-05-02] MEDS: INSULIN HUM LISPRO 100 UN/ML 3 ML VIAL SUBQ PRN ×2 (17:03→20:18)
[2019-05-02] MEDS: GABAPENTIN 300 MG CAP PO SCH ×2 (18:33→21:46)
[2019-05-02] MEDS: metFORMIN HCL XR 500 MG TABCR PO SCH (20:18)
[2019-05-02] MEDS: PREGABALIN 150 MG CAPSULE PO SCH (20:18)
[2019-05-02] MEDS: SIMVASTATIN 40 MG TAB PO SCH (20:18)
[2019-05-03] MEDS: VANCOMYCIN(*) 1 GM VIAL 1 GM, VANCOMYCIN (*) 0.5 GM VIAL 0.5 GM in NS(*) 0.9% 250 ML BA... IVPB SCH ×2 (01:05→09:44)
[2019-05-03] MEDS: CEFEPIME HCL 2 GM VIAL IVP SCH (03:18)
[2019-05-03 03:25] VITALS: BP 140/73
--- NOTE | 2019-05-03 07:17 | General Surgery Progress Note ---
Subjective Progress Notes Subjective No complaints today. NO pain in his foot. Physical Exam Vital Signs Date Time Temp Pulse Resp B/P (MAP) Pulse Ox O2 Delivery O2 Flow Rate FiO2 05/03/19 05:26 82 05/03/19 03:25 94 16 140/73 (95) Nasal Cannula 3.0 05/02/19 21:29 99.2 Intake and Output 05/03/19 07:01 Intake Total 3651 ml Output Total 450 ml Balance 3201 ml Intake Oral 1300 ml IV Total 1451 ml Other 900 ml Output Urine Total 450 ml # Voids 4 General Appearance: Alert, Awake, No Acute Distress, Afebrile Extremities: Other (Right 2nd toe dressing is clean and dry with only small s tain on the dressing. Foot is warm, perfused. No erythema and minimal edema.) Result Diagram: 05/01/1982005/01/19820 Assessment and Plan Problems: (1) Osteomyelitis of toe Status: Resolved Assessment & Plan: 04/29/19: His right second toe needs further amputation. He's currently on plavix and aspirin. He's 5 years out from stenting. I've recommended stopping plavix but continuing his baby aspirin. I will plan on amputation in the next several days. Continue wound care and blood sugar control measures. I have explained my findings, opinion, and my recommendations with him in great detail. I've explained toe amputation with him as well along with the alternatives, risks, and expected recovery. I've emphasized the risks of poor wound healing, continuing or recurrent infection at the amputation site, need for further amputation at a higher site such as a ray amputation. He indicates his understanding of this discussion and his questions have been answered. He would like to proceed with this plan including surgery. 04/30/19: Hold plavix. To OR in 2 days for right 2nd toe amputation. Continue wound care and blood sugar control. May continue ASA 81. Pt agreeable with plan. 05/02/19: To OR today for right 2nd toe amputation. Pt agreeable with proceeding with surgery. 05/03/19: POD#1 s/p right 2nd toe amputation. Doing well. OK to d/c to home today from surgical standpoint. (2) Type II diabetes mellitus Status: Chronic (3) Diabetic neuropathy Status: Chronic (4) CAD (coronary artery disease) Status: Chronic (5) DVT (deep venous thrombosis) Status: Resolved (6) History of coronary artery stent placement Status: Chronic (7) History of partial amputation of toe Status: Resolved Condition Stable. 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 insulin use: unspecified exterminator helper insulin use status Diabetes mellitus complication status: with circulatory complication Diabetes mellitus complication detail: with peripheral angiopathy with gangrene Qualified Codes: E11.52 - Type 2 diabetes mellitus with diabetic peripheral angiopathy with gangrene (2) Diabetic neuropathy: Diabetes mellitus type: type 2 Diabetes mellitus complication detail: diabetic polyneuropathy Qualified Codes: E11.42 - Type 2 diabetes mellitus with diabetic polyneuropathy (3) CAD (coronary artery disease): Coronary Disease-Associated Artery/Lesion type: unspecified vessel or lesion type [place] vs. transplanted heart: [place] heart Associated angina: without angina Qualified Codes: I25.10 - Atherosclerotic heart disease of [place] coronary artery without angina pectoris (4) DVT (deep venous thrombosis): DVT location: lower extremity Affected thrombotic vein of extremity: unspecified vein of extremity Chronicity: chronic Laterality: right Qualified Codes: I82.501 - Chronic embolism and thrombosis of unspecified deep veins of right lower extremity ANISHA BELLAMY MD May 03, 2019 07:17
[2019-05-03 07:21] VITALS: BP 125/82
[2019-05-03] MEDS: metFORMIN HCL XR 500 MG TABCR PO SCH (08:54)
[2019-05-03] MEDS: METOPROLOL TART 50 MG TAB PO SCH (08:54)
[2019-05-03] MEDS: MULTIVITAMINS TAB PO SCH (08:55)
[2019-05-03] MEDS: ASPIRIN 81 MG ENTERIC COATED PO SCH (08:55)
[2019-05-03] MEDS: PATIENT'S OWN MED PO SCH (08:55)
[2019-05-03] MEDS: LISINOPRIL 10 MG TAB PO SCH (08:55)
[2019-05-03] MEDS: ENOXAPARIN 40 MG/0.4ML SYR SC SCH (08:55)
[2019-05-03] MEDS: LIRAGLUTIDE 18 MG/3 ML SUBQ SCH (09:30)
[2019-05-03] MEDS ORDERED: AMOX-559 PO (09:59)
--- NOTE | 2019-05-03 10:13 | Hospitalist Depart ---
Discharge Summary Reason for Hosp/Final Diag: (1) Cellulitis of right foot Status: Acute Hospital Course & Plan: It appears he had (at a minimum) cellulitis of his right second toe and foot. He had been on oral clindamycin and subsequent Levaquin as an outpatient. He was initially placed on IV vancomycin and cefepime. The skin changes responded very well to the antibiotics and he had resolution of the erythema. PT wound care was also following and noted the wound tracked down to bone. MRI was done and shows some edema, but no definitive osteomyelitis changes. Dr. Bellamy has evaluated his toe/foot and felt it was doubtful the toe would ever heal and recommended amputation of the toe. This was undertaken on 05/02/19. He did very well post-operatively. He will be on oral Augmentin 875mg BID for three days. He will follow up with Dr. Bellamy in in next 1-2 weeks. (2) CAD (coronary artery disease) Status: Chronic Hospital Course & Plan: He appears stable from this standpoint. His usual Plavix (last given 04/29) and aspirin (last given 05/01) were initially on hold due to probable upcoming surgery. These were resumed post-op. We did continue chronic simvastatin and metoprolol. (3) Type II diabetes mellitus Status: Chronic Hospital Course & Plan: He was placed on ADA diet and continued on his usual except for the Jardiance. His glucoses were under good control throughout the hospitalization. He will resume his usual regimen of Victoza, Jardiance, Januvia, metformin. He will follow up with Dr. Mckeon. Departure Weight (Pounds): 298 Result Diagram: 05/01/1982005/01/19820 Item Value Date Time White Blood Count 15.2 k/uL H 04/27/192256 Hemoglobin 18.8 g/dL H 04/27/192256 Hematocrit 56.3 % H 04/27/192256 Platelet Count 145 K/uL L 04/27/192256 White Blood Count 9.1 k/uL 04/29/19513 Hemoglobin 16.2 g/dL 04/29/1914 Hematocrit 48.9 % 04/29/19513 Platelet Count 117 K/uL L 04/29/19 0514 Sodium Level 139 mmol/L 03/24/11 1342 Potassium Level 4.4 mmol/L 03/24/11 1342 Chloride Level 106 mmol/L 03/24/11 1342 Carbon Dioxide Level 27 mmol/L 03/24/11 1342 Blood Urea Nitrogen 18 mg/dl 03/24/11 1342 Creatinine 1.10 mg/dl 03/24/11 1342 Glomerular Filtration Rate Calc > 60.0 03/24/11 1342 Random Glucose 90 mg/dl 03/24/11 1342 Calcium Level 8.8 mg/dl 03/24/11 1342 Whole Blood Glucose 75 mg/DL 03/24/11 1642 Hemoglobin A1c 7.1 % H 04/28/19 0556 Lactate 1.6 mmol/L 04/27/19 2257 Albumin 4.6 g/dl 04/27/19 2257 Total Protein 7.5 g/dl 04/27/19 2257 C-Reactive Protein 1.2 mg/dl H 04/27/19 225 Alkaline Phosphatase 95 U/L 04/27/19 2257 Alanine Aminotransferase (ALT/SGPT) 36 U/L 04/27/19 2257 Aspartate Amino Transf (AST/SGOT) 35 U/L 04/27/19 2257 Total Bilirubin 0.9 mg/dl 04/27/19 2257 Calcium Level 9.6 mg/dl 04/27/19 2257 Random Glucose 129 mg/dl H 04/27/192256 Glomerular Filtration Rate Calc > 60.0 04/27/192256 Creatinine 1.00 mg/dl 04/27/192256 Blood Urea Nitrogen 20 mg/dl 04/27/19 2257 Carbon Dioxide Level 25 mmol/L 04/27/197 Chloride Level 102 mmol/L 04/27/197 Potassium Level 4.5 mmol/L 04/27/197 Sodium Level 140 mmol/L 04/27/197 Urine Color Yellow 04/27/19 2344 Urine Clarity Clear 04/27/19 2344 Urine Specific [place] 1.023 04/27/19 2344 Urine pH 5.0 pH 04/27/19 2344 Urine Protein Negative mg/dL 04/27/19 2344 Urine Glucose (UA) 500 mg/dL 04/27/19 2344 Urine Ketones Trace mg/dL 04/27/19 2344 Urine Blood Negative 04/27/19 2344 Urine Nitrite Negative 04/27/192343 Urine Bilirubin Negative 04/27/192343 Urine Urobilinogen Negative mg/dL 04/27/192343 Urine Leukocyte Esterase Negative 04/27/192343 Urine RBC <1 /HPF 04/27/192343 Urine WBC 3 /HPF 04/27/192343 Urine Bacteria Negative /HPF 04/27/192343 Urine Squamous Epithelial Cells None /LPF 04/27/192343 Urine Mucus None /HPF 04/27/192343 [facility] *LIVE* [address] [facility] [place] [address] JORGE CREWS M.D., DIRECTOR OF LABORATORY SERVICES NAY STORM M.D., PATHOLOGIST RUN DATE: 05/03/19 Specimen Inquiry Report PAGE 1 RUN TIME: 928 --- --------- PATIENT: JEROD LEONARD ACCT: [id number] LOC: MED U: [id number] AGE/SX: 73/M ROOM: [facility] RE04/28/[address]: ALPESH HERNANDEZ MD : 1945 BED: 276 DIS: STATUS: ADM IN TLOC: SPEC #: [id number] SUNDAR: 04/27/19 STATUS: COMP REQ #: [id number] RECD: 04/27/[address]: ENA DAVIDSON DO SOURCE: BLOOD PER ENTR: 04/27/19-2240 [facility] DR: KOMAL MCKEON MD [facility]: ORDERED: CULT BLOOD - Procedure Result Verified BLOOD CULTURE Final 05/03/19-928 NO GROWTH AFTER 5 DAYS IN BOTH THE AEROBIC AND ANAEROBIC BOTTLES. [facility] [address] [place] [address] JORGE CREWS M.D., DIRECTOR OF LABORATORY SERVICES NAY STORM M.D., PATHOLOGIST RUN DATE: 05/03/19 Specimen Inquiry Report PAGE 1 RUN TIME: 928 PATIENT: JEROD LEONARD ACCT: [id number] LOC: [facility] U: [id number] AGE/SX: 73/M ROOM: [facility] RE04/28/[address]: ALPESH HERNANDEZ MD : 1945 BED: 276 DIS: STATUS: ADM IN TLOC: SPEC #: [id number] SUNDAR: 04/27/19 STATUS: COMP REQ #: [id number] RECD: 04/27/[address]: ENA DAVIDSON DO SOURCE: BLOOD PER ENTR: 04/27/19-[address]: KOMAL MCKEON MD [facility]: ORDERED: CULT BLOOD Procedure Result Verified BLOOD CULTURE Final 05/03/19 NO GROWTH AFTER 5 DAYS IN BOTH THE AEROBIC AND ANAEROBIC BOTTLES. Imaging PATIENT NAME: Jerod Leonard : 1945 MR: [id number] V: [id number] EXAM DATE: ORDERING PHYSICIAN: JANAY ROCHE TECHNOLOGIST: Location: [facility] Patient: Jerod Leonard : 1945 Visit/Account:[id number] Date of Sevice: 04/27/2019 FOOT 3 VIEWS RIGHT History: Right foot pain. Right second toe swelling. History of amputation. Comparison study: None. Findings: There is no acute fracture involving the right foot. There has been amputation of the second digit at the PIP joint. There has been amputation of the third digit at the DIP joint. There is widening of the joint space at the fourth PIP joint is of uncertain etiology or significance. Similar findings are noted at the fifth PIP joint. There is no finding of bony erosion in a digits. IMPRESSION: 1. Postoperative changes involving the second third digit as described above. 2. No definitive site of bony erosion. No fracture. Report Dictated By: Komal Noland MD at 04/27/2019 2:10 PM Report E-Signed By: Komal Noland MD at 04/27/2019 2:12 PM WSN:[id number] PATIENT NAME: Jerod Leonard : 1945 MR: [id number] V: [id number] EXAM DATE: [id number] ORDERING PHYSICIAN: ENA DAVIDSON TECHNOLOGIST: Location: [facility] Patient: Jerod Leonard : 1945 Visit/Account:[id number] Date of Sevice: 04/27/2019 VENOUS DOPP LOW RIGHT EXTREMIT HISTORY: R calf swelling redness r/o DVT COMPARISON: None. FINDINGS: Grayscale, duplex and color Doppler interrogation of the right lower extremity deep veins from common femoral vein to proximal calf was completed. The greater saphenous vein in the proximal thigh was evaluated using similar technique. Common femoral vein - Negative. Femoral vein - Negative. Deep femoral vein - Negative. Popliteal vein - Negative. Visualized deep calf veins - Negative. Popliteal fossa: Negative. Greater saphenous vein in the proximal thigh: Negative. IMPRESSION: No evidence for DVT. Report Dictated By: Humza Rider MD at 04/28/2019 12:18 AM Report E-Signed By: Humza Rider MD at 04/28/2019 12:18 AM WSN:[id number] PATIENT NAME: Jerod Leonard : 1945 MR: [id number] V: [id number] EXAM DATE: [id number] ORDERING PHYSICIAN: ENA DAVIDSON TECHNOLOGIST: Location: [facility] Patient: Jerod Leonard : 1945 Visit/Account:[id number] Date of Sevice: 04/27/2019 PORTABLE CHEST: Indication: Fever and chills. Technique: A single frontal film was obtained. Comparison: 03/24/2011 Skeletal and soft tissue structures: Sternal sutures appear intact. No acute skeletal deformity is identified. Heart and mediastinum: The heart appears mildly enlarged. The mediastinal contours are stable. Lung castillo: Hypoexpanded. No acute parenchymal process is clearly identified. There is no vascular congestion. Pleural spaces: Unremarkable. Impression: No acute process or significant change. Report Dictated By: Jarred Gonzalez MD at 04/28/2019 12:46 AM Report E-Signed By: Jarred Gonzalez MD at 04/28/2019 12:48 AM WSN:[id number] PATIENT NAME: Jerod Leonard : 1945 MR: [id number] V: [id number] EXAM DATE: [id number] ORDERING PHYSICIAN: NAY MCKEON TECHNOLOGIST: Location: [facility] Patient: Jerod Leonard : 1945 Visit/Account:[id number] Date of Sevice: 04/28/2019 MRI right foot Indication: Infected wound. History of partial amputation 2nd digit. Comparison: Plain radiographs right foot from 04/27/2019 Technique: Multiplanar multisequence MR images were obtained through the right foot. Findings: Postop changes from resection of the 2nd digit at the level the mid phalanx again noted. Correlate with surgical history. Prominent subcutaneous edema at the dorsum of the midfoot and proximal forefoot can be seen with cellulitis. Lack of IV contrast makes difficult to evaluate for abscess collection. The visualized flexor and extensor tendons of the forefoot and midfoot appear intact with no significant tenosynovitis seen. There is no acute or aggressive osseous abnormality of the visualized bones of the forefoot to suggest osteomyelitis at this time. However, there is patchy edema-like signal suggested within the proximal phalanx of the 2nd digit. IMPRESSION: 1. Findings consistent with prominent cellulitis dorsum of the foot as above. 2. Likely reactive edema within the residual proximal phalanx of the 2nd digit with no abnormal marrow signal to suggest osteomyelitis on these images. Report Dictated By: Everardo Escobar MD at 04/29/2019 1:45 PM Report E-Signed By: Everardo Escobar MD at 04/29/2019 1:49 PM WSN:[id number] Condition: Improved Discharge: Home, Self Care Follow-Up Labs: Finger Sticks (AC and HS) Treatments: Wound Care (as per Dr. Bellamy) Discharge Instructions Home Meds Active Scripts Amoxicillin/Pot Clav 875-125 Mg Tab (AUGMENTIN 875-125 TABLET) 1 Each Tablet, 1 TAB PO BID for 3 Days, #6 TAB 0 Refills Take with food Prov:ALPESH HERNANDEZ MD 05/03/19 Reported Medications Gabapentin (GABAPENTIN) 400 Mg Capsule, 3 TAB PO BID, CAPSULE 3 tabs at 1800, and 2100 04/28/19 Multivitamin With Minerals (MULTIPLE VITAMIN) 1 Each Tablet, 1 EACH PO, TAB 04/28/19 Aspirin (ASPIRIN) 81 Mg Tab.chew, 81 MG PO QDAY, TAB.CHEW 04/28/19 Liraglutide (VICTOZA 2-ANAND) 0.6 Mg/0.1 Ml Pen.injctr, 1.2 MG SQ QDAY 04/28/19 [Trimicinolone Cream] No Conflict Check 04/28/19 Pregabalin (LYRICA) 150 Mg Capsule, 150 MG PO QHS, CAPSULE 04/28/19 Empagliflozin (Jardiance) 10 Mg Tablet, 10 MG PO QDAY 04/28/19 Sitagliptin Phosphate (JANUVIA) 100 Mg Tablet, 100 MG PO QDAY 04/28/19 Metformin Hcl (METFORMIN HCL) 1,000 Mg Tablet, 1 TAB PO BID, TAB 04/28/19 Clopidogrel Bisulfate (Plavix) 75 Mg Tab, 75 MG PO QDAY, 0 Refills 03/19/11 Simvastatin (Zocor) 40 Mg Tablet, 40 MG PO QHS, 0 Refills 03/19/11 Metoprolol Tartrate (Lopressor) 50 Mg Tablet, 50 MG PO BID, 0 Refills 03/19/11 Lisinopril (Lisinopril) 10 Mg Tablet, 10 MG PO, 0 Refills 03/19/11 Discontinued Reported Medications Meloxicam (MELOXICAM) 7.5 Mg Tablet, 7.5 MG PO QHS 04/28/19 Gabapentin (GABAPENTIN) 300 Mg Capsule, 600 MG PO TID, CAPSULE 04/28/19 [Plavix Held] No Conflict Check, 0 Refills 03/19/11 Glimepiride (Amaryl) 2 Mg Tab, 2 MG PO QDAY, 0 Refills 03/19/11 Fenofibric Acid (Trilipix) 135 Mg Capsule.dr, 135 MG PO, 0 Refills 03/19/11 Sitagliptin Phos/Metformin Hcl (Janumet 50-1,000 Mg Tablet) 1 Udtab Tablet, 1 UDTAB PO BID, 0 Refills 03/19/11 Me-Cobalam/Lm-Folate/Pyridoxal (Metanx Tablet) 1 Tab Tablet, 1 TAB PO, 0 Refills 03/19/11 Diet: Diabetic Activity: As Tolerated Special Instructions: FOLLOW UP WITH DR. BELLAMY ON THURSDAY MAY 16, 2019 AT 3:30. Follow up with Dr. Mckeon in next 5-10 days or sooner if any problems. Copies to: KOMAL MCKEON MD; ANISHA BELLAMY MD ; Venous Thromboembolism Antithrombotics Is Pt On Any Antithrombotics?: Yes Problem Qualifiers (1) CAD (coronary artery disease): Coronary Disease-Associated Artery/Lesion type: unspecified vessel or lesion type [place] vs. 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
== END 2019-05-03 11:57 | disposition home or self-care (01) | DRG 580 ==
LOC: ER 22:34 → MED 04-28 01:16
PROVIDERS: ADMIT Internal Medicine; ATTEND Internal Medicine
PROC: 0Y6R0Z1 Detachment at Right 2nd Toe, High, Open Approach (ICD-10-PCS; principal; 2019-05-02 12:50)
DX: L03.031 Cellulitis of right toe (principal); E11.52 Type 2 diabetes mellitus with diabetic peripheral angiopathy with gangrene; L03.115 Cellulitis of right lower limb; I25.10 Atherosclerotic heart disease of native coronary artery without angina pectoris; E11.42 Type 2 diabetes mellitus with diabetic polyneuropathy; Z88.8 Allergy status to other drugs, medicaments and biological substances; Z79.82 Long term (current) use of aspirin; Z79.899 Other long term (current) drug therapy; Z99.81 Dependence on supplemental oxygen; Z79.02 Long term (current) use of antithrombotics/antiplatelets; Z88.2 Allergy status to sulfonamides; Z95.5 Presence of coronary angioplasty implant and graft; Z86.718 Personal history of other venous thrombosis and embolism; Z89.421 Acquired absence of other right toe(s); Z79.4 Long term (current) use of insulin
CPT/HCPCS: 36415; 36416; 71045; 80202; 81001; 82040; 82247; 82310; 82374; 82435; 82565; 82947; 82948; 83036; 83605; 84075; 84132; 84155; 84295; 84450; 84460; 84520; 85025; 85651; 86140; 87040; 88305; 88311; 96361; 96365; 96366; 97161; 97165; 99284; J0692; J1100; J1650; J2001; J2405; J2704; J2795; J3010; J3370; J3490; J7030; J7040; J7050

== ENCOUNTER → 2019-04-27 | Outpatient (CLI) | payer MEDICARE, OTHER ==
[~2019-04-27] MED LIST: ASPI-719 PO; ASPI81TA94 PO; CLO75 PO; EMPA10TA PO; GABA-549 PO; GABA-551 PO; GLI2 PO; GLIM4TAB49 PO; LIRA0.6P3 SQ; LISI-362 PO; LISINOPRIL PO; MELO-205 PO; METANXPT PO; METF-452 PO; METFORMIN PO; METO-1 PO; MULT-1 PO; MULT-1335 PO; NIAC500T81 PO; PLAVIX; PREG150C33 PO; SIMV-44 PO; SITA100T PO; SITA1TAB16 PO; TRIAMCINOLONE; TRILI135PT PO; ZOCOR PO; [UNRECOGNIZED DRUG - REMARK]
--- NOTE | 2019-04-27 14:17 | RADIOLOGY IMAGING REPORT ---
FACILITY: [facility] PATIENT NAME: Sebastien Leonard : 1945 MR: [id number] V: [id number] EXAM DATE: ORDERING PHYSICIAN: JANAY ROCHE TECHNOLOGIST: Location: [facility] Patient: Sebastien Leonard : 1945 Visit/Account:[id number] Date of Sevice: 04/27/2019 FOOT 3 VIEWS RIGHT History: Right foot pain. Right second toe swelling. History of amputation. Comparison study: None. Findings: There is no acute fracture involving the right foot. There has been amputation of the sec ond digit at the PIP joint. There has been amputation of the third digit at the DIP joint. There is widening of the joint space at the fourth PIP joint is of uncertain etiology or significance. Simil ar findings are noted at the fifth PIP joint. There is no finding of bony erosion in a digits. IMPRESSION: 1. Postoperative changes involving the second third digit as described above. 2. No definitive site of bony erosion. No fracture. Report Dictated By: Marko Noland MD at 04/27/2019 2:10 PM Report E-Signed By: Marko Noland MD at 04/27/2019 2:12 PM [id number]
== END ==
LOC: RAD 13:39
PROVIDERS: ATTEND Physician Assistant
DX: Z89.421 Acquired absence of other right toe(s) (principal)